=== PATIENT | female | born 1970 | race Caucasian/White ===

== ENCOUNTER 2022-07-27 10:14 | Day surgery (SDC) | payer OTHER, SELFPAY ==
--- NOTE | 2022-07-27 07:40 | ANES.PREOP_ITS ---
General Info Date of Service Date Performed: 07/27/22 Height: 5 ft 3 in Weight: 113.398 kg Body Mass Index (BMI): 44.2 Surgical Procedure: Operation Date: 07/27/22 13:40 Proposed Procedure Side Surgeon p Cataract Extraction with IOL Implant Left Luis Saini MD Meds Allergies and Home Medications Allergies Allergy/AdvReac Type Severity Reaction Status Date / Time Sulfa (Sulfonamide Allergy Severe Skin Rash Unverified 07/27/22 10:53 Antibiotics) Home Medication Medication Instructions Recorded chlorthalidone 25 mg tablet 25 mg PO DAILY 07/23/22 lisinopril 20 mg tablet 20 mg PO DAILY 07/23/22 Current Visit Medications: Current Medications Generic Name Dose Route Start Last Admin Trade Name Freq PRN Reason Stop Dose Admin Acetaminophen 1,000 mg 07/27/22 06:00 Acetaminophen 500 Mg Tab PO Q4H PRN PRN Miscellaneous Medication 0 ml 07/27/22 06:00 Tropicam./Phenyleph. (1/2.5%) 5 Ml Btl OS DIRECTED [facility] Miscellaneous Medication 0 ml 07/27/22 06:00 Prednisolone 1%, Moxifloxacin 0.5%, Nepafenac 0.1% 5ml Btl OS DIRECTED [facility] Tetracaine HCl 0 ml 07/27/22 06:00 Tetracaine 0.5% 4 Ml Btl OS DIRECTED [facility] PFSH Active Problems Active Problems: Problem Status Onset Code Cortical age-related cataract, left eye H25.012 Medical History Medical History (Updated 07/27/22 @ 11:01 by Bonita Pringle) Back pain Claustrophobia Environmental allergies High blood pressure Medullary sponge kidney of both kidneys Tendonitis Surgical History Surgical History (Updated 07/24/22 @ 11:08 by Mamadou Griffin) H/O bilateral breast reduction surgery History of orthopedic surgery partial removal of tibia repair both collat ankle ligment History of total abdominal hysterectomy and bilateral salpingo-oophorectomy Tobacco Smoking/Tobacco Use Status: Former Tobacco Use Alcohol Alcohol Intake: current Alcohol intake frequency: a few times a month Substance Use Substance use: Never Substance use type: does not use Vital Signs and Lab Results Vital Signs Most Recent Vital Signs in EMR: Temp Pulse Resp BP Pulse Ox 36.5 C 87 20 151/95 H 97 07/27/22 10:40 07/27/22 10:40 07/27/22 10:40 07/27/22 10:40 07/27/22 10:40 Lab Results Blood Type / Crossmatch: No Data to Display Complete Blood Count: No Data to Display Complete Metabolic Panel: No Data to Display Liver Function Panel: No Data to Display Coagulation Panel: No Data to Display Cardiac Panel: No Data to Display Arterial Blood Gas: No Data to Display Venous Blood Gas: No Data to Display Pancreas Panel: No Data to Display Thyroid Panel: No Data to Display Infectious Disease: No Data to Display Blood Cultures: No Data to Display Toxicology Panel: No Data to Display Panel: No Data to Display Anesthesia Assessment and Plan Anesthesia History Personal History: No History of Anesthesia Complications Family History: No Family History of Anesthesia Complications Exercise Tolerance Exercise Tolerance: Metabolic Equivalents>4 Cardiac & Pulmonary Exam Cardiac Exam: Normal S1/S2 Heart Sounds Pulmonary Exam: Clear Bilateral Breath Sounds Implantable Cardiac Device Does patient have a Pacemaker or an ICD?: No Airway Exam Known Difficult Airway: No Mallampati Class: 2 Mouth Opening: Normal (> 3cm) Thyromental Distance: Greater than 3 cm Neck Range of Motion: Full ROM Neck Circumference: Thick Teeth Condition: Normal Dentition ASA Classification ASA Score: ASA 3 Emergency Case?: No NPO Status NPO Status: NPO Clears >2 hours, Solids >8 hours Status Status: History of Hysterectomy Anesthesia Plan Resuscitation Status: Full Code Anesthesia Technique: MAC Anesthesia Airway Planned: Natural Airway Monitors Used: Standard Monitors Preoperative Comments:: 52 yo female for cataract. would like MKO Sig PMHx: HTN (lisinopril, chlorthalidone), back pain, former smoker, occ EtOH.
[2022-07-27 10:40] VITALS: BP 151/95; PULSE 87; RESP 20; TEMP 36.5; O2SAT 97
[2022-07-27] MEDS: Tropicam./Phenyleph. (1/2.5%) 5 ML BTL OS ×3 (11:01→11:15)
[2022-07-27 11:13] VITALS: BMI 44.2
[2022-07-27] MEDS: Tetracaine 0.5% 4 ML BTL OS (12:25)
[2022-07-27] MEDS: Lidocaine 1% Pres-Free 5 ML VIAL (12:26)
[2022-07-27] MEDS: Balanced Salt Soln.-PLUS 500 ML BAG (12:26)
[2022-07-27] MEDS: Duovisc Viscoelastic System EACH 1 EACH (12:26)
[2022-07-27] MEDS: Phenylephrine/Lidocaine (15/10) MG/ML 1 ML VIAL (12:27)
[2022-07-27] MEDS: Povidone-Iodine Ophth 30 ML BTL (12:28)
[2022-07-27 12:40] VITALS: BP 120/87; PULSE 81; RESP 18; TEMP 36.4; O2SAT 98
--- NOTE | 2022-07-27 12:40 | W.PM.DSUDISC ---
Date of service: 07/27/22 Time of Service: 12:40 Discharge Plan Disposition Patient Disposition: Home Discharge Details Attending Provider: Luis Saini Primary Care Provider: Mathew Hidalgo Home Meds and New Rx's Prescriptions: No Action lisinopril 20 mg Tablet 20 mg PO DAILY chlorthalidone 25 mg Tablet 25 mg PO DAILY Discharge Instructions Stand Alone Forms: Post-op Topical Cataract, Debby Pride (DSU) Discharge Orders Discharge Orders: Discharge Order (Routine); Ordered 07/27/22 Ordered By: Luis Saini DS: Diagnosis Discharge Diagnosis (1) Cortical age-related cataract, left eye: Status: Resolved
--- NOTE | 2022-07-27 12:41 | W.PM.OP ---
Date of service: 07/27/22 Time of Service: 12:41 Operative Note Operative Note DATE OF PROCEDURE: 07/27/22 PRE-OP DIAGNOSIS: Cortical cataract, left eye POST-OP DIAGNOSIS: same PROCEDURE: Cataract extraction using phacoemulsification with intraocular lens implant, left eye SURGEON: Luis Saini ANESTHESIA TYPE: Local By Surgeon and MAC Refer to Anesthesia Record PATHOLOGY: none sent COMPLICATIONS: None Patient was transported to: same day Patient's condition: stable Implants: Tone and Tone Tecnis Eyhance DIB00 Indications: Progressive decreased vision due to cataract, left eye Procedure Description: CATARACT SURGERY OPERATIVE REPORT PREOPERATIVE DIAGNOSIS: 1. Cortical cataract, left eye POSTOPERATIVE DIAGNOSIS: Same OPERATION: 1. Cataract extraction using phacoemulsification with posterior chamber intraocular lens implant, left eye. IOL: IOL Master Chef/Model: Tone & Tone Tecnis Eyhance DIB00 IOL Power: + 19.0 diopters IOL Serial Number: [id number] Optic Diameter: 6.0 mm Haptic/Overall Diameter: 13.0 mm PHACO INFO: [employer] Vision System with OZil and Active [employer]uidics Cumulative Dispersed Energy (CDE): 2.04 seconds SURGEON: Luis Saini MD, ESTHER ANESTHESIA: Monitored [facility] (MAC), with local sub-tenon's anesthetic infiltration COMPLICATIONS: None SPECIMENS: None INDICATIONS FOR PROCEDURE: The patient is a 52-year-old lady with history of trauma to the left eye who has developed a significant cortical cataract. She is significantly symptomatic that she desires cataract surgery and attempt to improve and maximize her vision. See office notes for detailed information. PROCEDURE: The correct surgical eye was identified and marked as the left eye and the pupil was dilated in the preoperative area using mydriatics and cycloplegics. The dilated pupil size was 7.0 mm. Oral sedation was administered in the form of an Imprimis MKO Melt (midazolam 3mg/ketamine 25mg/ondansetron 2mg). The patient was brought to the operating room where cardiopulmonary monitoring was instituted and surgical time-out was performed, confirming the correct operative eye and IOL power. Topical anesthesia was administered and ophthalmic povidone-iodine 5% was instilled into the conjunctival fornices. Lidocaine gel was applied to the cornea and the beverly-ocular area was prepped with Betadine 10% solution and draped in the usual sterile fashion for intraocular surgery, including an aperture drape. A Tegaderm transparent film dressing was cut in half and used to cover the lashes and lid margins. Care was taken to sequester the lashes and lid margins under the Tegaderm dressing. A lid speculum was placed between the lids of the operative eye and the Kwesi LuxOR Revalia operating microscope was maneuvered into position. Patient was significantly claustrophobic, and despite positioning the drapes to relieve some of the claustrophobia, she required administration of an IV with Versed 2 mg prior to starting the procedure in the operating room. Joel scissors were then used to make a conjunctival buttonhole approximately 6mm posterior to the limbus in the inferonasal quadrant. Blunt dissection was carried out to expose bare sclera, and a blunt-tipped sub-tenon?s anesthesia cannula was introduced and passed posteriorly along the globe where non-preserved plain lidocaine was injected into posterior sub-Tenon?s space. A sideport knife was used to make a paracentesis port superiorly/superiortemporally. Intraocular phenylephrine/lidocaine was injected int the anterior chamber.. The anterior chamber was filled with viscoelastic. A keratome knife was used to construct a 2-plane near-clear corneal tunnel extending 2.0mm into clear cornea temporally. A flap was raised on the anterior capsule and capsulorhexis forceps were used to complete a continuous curvilinear capsulorhexis of 5.5 mm. Balanced salt solution was then used to perform cortical cleaving hydrodissection and nuclear hydrodelineation until the lens could be freely rotated within the capsular bag. The lens nucleus was then disassembled and removed within the capsular bag and iris plane using phacoemulsification. Residual cortical material was removed using the 45-degree angled silicone I/A tip with 0.3mm port. The posterior capsule was carefully polished to remove as much residual lens epithelial cells as safely possible. The capsular bag was then inflated and the anterior chamber deepened with viscoelastic. The lens implant described above was inserted into the capsular bag using the Tone and Tone Simplicity pre-loaded injector. . A Kuglen hook was used to dial the IOL into position. Residual viscoelastic was then removed first from posterior to the IOL, then from the anterior chamber using the I/A handpiece. The lens implant was noted to center nicely within the capsular bag. The incisions were stromally hydrated, and the anterior chamber was reformed using BSS. Then 0.5cc of moxifloxacin 1.0mg/ml were injected into the capsular bag and anterior chamber. The incisions were checked with a Weck spear and found to be secure. Several drops of ophthalmic povidone-iodine 5% were then applied to the eye followed by two drops of Imprimis combination prednisolone/moxifloxacin/nepafenac solution. The drapes were removed and a clear plastic protective eye shield was placed over the eye. The patient was then returned to Same Day Surgery in stable condition.
--- NOTE | 2022-07-27 12:49 | W.ANESPOSTOP ---
Postoperative Evaluation Date, Time and Location Date Performed: 07/27/22 Time Performed: 12:49 Patient Location: Day Surgery Unit Vital Signs Most Recent Imported Vital Signs: Most Recent Vital Signs Temp Pulse Resp BP Pulse Ox 36.4 C L 81 18 120/87 98 07/27/22 12:40 07/27/22 12:40 07/27/22 12:40 07/27/22 12:40 07/27/22 12:40 Pain Score Most Recent Pain Score: Most Recent Pain Score Pain Level 0 07/27/22 10:40 Assessment Mental Status: Awake (Alert & Oriented to Patient Baseline) Airway and Respiratory Function: Patent airway with normal (patient baseline) respiratory exam Cardiovascular Function: Hemodynamically Stable Hydration Status: Adequately Hydrated Nausea & Vomiting: No Nausea or Vomiting Pain: Pt. Denies Any Pain Peripheral Nerve Block: Patient did not receive a nerve block
[2022-07-27 13:00] VITALS: BP 136/98; PULSE 87; RESP 18; TEMP 36.5; O2SAT 97
== END 2022-07-27 13:12 | disposition home or self-care (01) ==
LOC: SUR 10:15
PROVIDERS: PCP Urology; Visit Provider Ophthalmology
PROC: (CPT 66984; principal; 2022-07-27 13:30)
DX: H25.012 Cortical age-related cataract, left eye (principal)
CPT/HCPCS: 66984; V2632; J2250